=== PATIENT | female | born 1980 | race Caucasian/White ===

== ENCOUNTER 2019-02-15 21:25 | Emergency (ER) | payer SELFPAY ==
[2019-02-15] MEDS ORDERED: Ketorolac Tromethamine 60 MG/2 ML VIAL ONE (21:59)
== END 2019-02-15 22:59 | disposition home or self-care (01) ==
LOC: ERS 21:25
DX: S16.1XXA Strain of muscle, fascia and tendon at neck level, initial encounter (principal); I10 Essential (primary) hypertension; F41.9 Anxiety disorder, unspecified; F32.9 Major depressive disorder, single episode, unspecified; Z79.899 Other long term (current) drug therapy; V89.2XXA Person injured in unspecified motor-vehicle accident, traffic, initial encounter
CPT/HCPCS: 96372; 99283; J1885